=== PATIENT | female | born 1990 | race Caucasian/White ===

== ENCOUNTER 2018-04-02 04:21 | Inpatient (IN) | payer OTHER ==
[~2018-04-02] VITALS: Ht 170.2 cm; Wt 66.4 kg
[2018-04-02 06:40] VITALS: BP 126/73; PULSE 70; RESP 18; TEMP 98.3; O2SAT 100
[2018-04-02] MEDS ORDERED: ALUMINUM/MAGNESIUM/SIMETH 30 ML CUP PO PRN (10:45)
[2018-04-02] MEDS: QUEtiapine FUMARATE 100 MG TAB PO SCH ×2 (10:45→20:41)
[2018-04-02] MEDS ORDERED: MAGNESIUM HYDROXIDE SUSP 30 ML CUP PO PRN (10:45)
--- NOTE | 2018-04-02 11:02 | HHI.HP ---
Provisional Diagnosis Admission Date April 02, 2018 at 06:43 [place] I. Psychotic disorder brief F 23 Certification of Person's Competence To Provide Express and Informed Consent I have personally examined Garret Yeboah , a person being served at [facility] on, April 02, 2018 10:46. Express and informed consent means consent voluntarily given in writing, by a competent person, after sufficient explanation and disclosure of the subject matter involved to enable the person to make a knowing and willful decision without any element of force, fraud, deceit, duress, or other form of constraint or coercion. This person is 18 years of age or older, is not now known to be incompetent to consent to treatment with a guardian advocate, and does not have a health care surrogate or proxy currently making medical treatment decisions. I have found this person to be one of the following: [] Competent to provide express and informed consent, as defined above, for voluntary admission to this facility and is competent to provide express and informed consent for treatment. He/she has the consistent capacity to make well reasoned, willful, and knowing decisions concerning his or her medical or mental health treatment. The person fully and consistently understands the purpose of the admission for examination/placement and is fully capable of personally exercising all rights assured under [place]xxx] Incompetent to provide express and informed consent to voluntary admission , and this is incompetent to provide express and informed consent to treatment. The person must be transferred to involuntary status and a petition for a guardian advocate filed with the Circuit Court. [] Refusing to provide express and informed consent to voluntary admission but is competent to provide express and informed consent for treatment. The person must be discharged or transferred to involuntary status. Form shall be completed within 24 hours of a person's arrival at the receiving facility and filed in the clinical record of each person: 1. Admitted on a voluntary basis 2. Permitted to provide express and informed consent to his/her own treatment 3. Allowed to transfer from involuntary to voluntary status 4. Prior to permitting a person to consent to his or her own treatment after having been previously found incompetent to consent to treatment. History of Present Illness Capacity: Lacks Capacity HPI Patient is a 28-year-old white female was initially seen at [facility] with a Green act signed by kerry Garcia 04/02/1803 40 7 AM this document reviewed essentially stating patient with acute psychosis delusional thought process unsafe for release. Patient stated screen at that facility urine toxicology negative blood alcohol of negative. Patient transported here to the [facility]. Patient seen in her room on 2700 with nurse Mary. Patient is alert white female who appears somewhat older than stated age sitting is somewhat agitated manner in her room. She is diffusely confused as to date time and situation. She is showing severe thought blocking. Many times questioning a question with the "what?" There are infrequent responses that are somewhat appropriate. She acknowledges hearing spirits in her head that are disturbing. She feels there are people who may be inserting thoughts into her head. When asked about more specific past psychiatric history she refuses to answer with a marked confused look on her face. She did state with history of multiple drug abuse in the past including intravenous drug use including heroin. She is vague but acknowledged past detox and perhaps rehabs. She is quite confusing related to any mental health hospitalizations though she appears to be familiar with January. Patient states she has 3 children a teenager from 7-55-eoqz-old and about a 3-year-old. She is again confusing as to who is caring for these children. She first stating grandparents, then stating aunt and uncle than stating multiple family members.. In any event patient shows increased emotions becoming tearful when asked to give more specifics related to her family and her mental health history. There is vague if she has had any prior physical or sexual or emotional abuse. She is vague about any family history of mental illness of interest patient did state he had [facility] that she was hospitalized here 2-3 days ago and given Suboxone. Review of our EMR shows that this is patient's first visit with us. At this time patient meets criteria for involuntary psychiatric hospitalization of the [facility] older first opinion request second opinion. I feel she does not have capacity thus FOR healthcare surrogate and guardian advocate. Will attempt to reach family members to find a healthcare surrogate, and get further information about this lady's past mental health history and drug abuse history Review of Systems ROS Limitations: Altered Mental Status Constitutional: DENIES: Diaphoretic episodes, Fatigue, Fever, Weight gain, Weight loss, Chills, Dizziness, Change in appetite, Night Sweats Endocrine: DENIES: Abnorml menstrual pattern, Heat/cold intolerance, Polydipsia , Polyuria, Polyphagia Eyes: DENIES: Blurred vision, Diplopia, Eye inflammation, Eye pain, Vision loss , Photosensitivity, Double Vision Ears, nose, mouth, throat: DENIES: Tinnitus, Hearing loss, Vertigo, Nasal discharge, Oral lesions, Throat pain, Hoarseness, Ear Pain, Running Nose, Epistaxis, Sinus Pain, Toothache, Odynophagia Respiratory: DENIES: Apneas, Cough, Snoring, Wheezing, Hemoptysis, Sputum production, Shortness of breath Cardiovascular: DENIES: Chest pain, Palpitations, Syncope, Dyspnea on Exertion , PND, Lower Extremity Edema, Orthopnea, Claudication Gastrointestinal: DENIES: Abdominal pain, Black stools, Bloody stools, Constipation, Diarrhea, Nausea, Vomiting, Difficulty Swallowing, Anorexia Genitourinary: DENIES: Abnormal vaginal bleeding, Dysmenorrhea, Dyspareunia, Sexual dysfunction, Urinary frequency, Urinary incontinence, Urgency, Hematuria , Dysuria, Nocturia, Vaginal discharge Musculoskeletal: DENIES: Joint pain, Muscle aches, Stiffness, Joint Swelling, Back pain, Neck pain Integumentary: DENIES: Abnormal pigmentation, Pruritus, Rash, Nail changes, Breast masses, Breast skin changes, Nipple discharge Hematologic/lymphatic: DENIES: Bruising, Lymphadenopathy Immunologic/allergic: DENIES: Eczema, Urticaria Neurologic: DENIES: Abnormal gait, Headache, Localized weakness, Paresthesias, Seizures, Speech Problems, Tremor, Poor Balance Psychiatric: COMPLAINS OF: Anxiety, Hallucinations, Delusions Past Psych History Psychological trauma history Difficult to ascertain due to the patient's psychosis Violence risk - others (6 mos) Difficult to ascertain due to patient's psychosis Violence risk - self (6 mos) Difficult to ascertain due to patient's psychosis Substance Abuse History Drugs/Alcohol past 12 months Patient gives a past history of multiple drug abuse and intravenous drug abuse Past Family Social History Coded Allergies: No Known Allergies (Verified Allergy, Unknown, 04/02/18) Family Psych History Unknown at this time Social History Patient appears homeless, states she has 3 children who are living with various extended family members Patient's Strengths (min. 2) Patient verbal able [place] self-care Physical Exam Patient medically cleared [facility] at the present time patient sitting quietly in her room she is in no acute distress, no respiratory distress, no complaints of abdominal pain or chest pain. Patient moving all 4 extremities without difficulty Vital Signs Vital Signs Date Time Temp Pulse Resp B/P (MAP) Pulse Ox O2 Delivery O2 Flow Rate FiO2 04/02/18 06:40 98.3 70 18 126/73 (90) 100 Mental Status Examination Appearance: Appropriate Consciousness: Alert Orientation: Person Motor Activity: Normal gait Speech: Unremarkable Language: Adequate Fund of Knowledge: Adequate Attention and Concentration: Easily Distracted Memory: Impaired Mood: Sad, Irritable Affect: Other (Increased range and intensity) Thought Process & Associations: Loose associations, Other (Marked thought blocking) Thought Content: Bizarre thinking, Thought blocking Hallucination Type: Auditory Delusion Type: Paranoid Suicidal Ideation: No Suicidal Plan: No Suicidal Intention: No Homicidal Ideation: No Homicidal Plan: No Homicidal Intention: No Insight: Poor Judgment: Poor Assessment & Plan Problem List: (1) Brief psychotic disorder ICD Codes: F23 - Brief psychotic disorder Assessment & Plan Estimated LOS: 5-7 days patient meets clinical criteria will do first opinion request second opinion. Therefore she does not have capacity so as for health care surrogate and guardian advocate. We will start Seroquel at this lady once we get permission of healthcare surrogate. We will also attempt to get further information from patient's family related to her mental health history and substance abuse history Discharge Planning To be determined Request HC Surrog/Guard Advoc?: Yes Sandeep Moody MD April 02, 2018 11:02
--- NOTE | 2018-04-02 14:05 | PD.PSY.CON ---
Provisional Diagnosis Admission Date April 02, 2018 at 06:43 [place] I. Psychotic disorder brief F 23 History of Present Illness Service Psychiatry Consult Requested By Psychiatry Reason for Consult Second opinion Primary Care Physician Unknown HPI Patient is a 28-year-old white female was initially seen at [facility] with a Green act signed by kerry Garcia 04/02/1803 40 7 AM this document reviewed essentially stating patient with acute psychosis delusional thought process unsafe for release. Patient stated screen at that facility urine toxicology negative blood alcohol of negative. Patient transported here to the [facility]. Patient seen in her room on 2700 with nurse Mary. Patient is alert white female who appears somewhat older than stated age sitting is somewhat agitated manner in her room. She is diffusely confused as to date time and situation. She is showing severe thought blocking. Many times questioning a question with the "what?" There are infrequent responses that are somewhat appropriate. She acknowledges hearing spirits in her head that are disturbing. She feels there are people who may be inserting thoughts into her head. When asked about more specific past psychiatric history she refuses to answer with a marked confused look on her face. She did state with history of multiple drug abuse in the past including intravenous drug use including heroin. She is vague but acknowledged past detox and perhaps rehabs. She is quite confusing related to any mental health hospitalizations though she appears to be familiar with January. Patient states she has 3 children a teenager from 0-36-dtox-old and about a 3-year-old. She is again confusing as to who is caring for these children. She first stating grandparents, then stating aunt and uncle than stating multiple family members.. In any event patient shows increased emotions becoming tearful when asked to give more specifics related to her family and her mental health history. There is vague if she has had any prior physical or sexual or emotional abuse. She is vague about any family history of mental illness of interest patient did state he had [facility] that she was hospitalized here 2-3 days ago and given Suboxone. Review of our EMR shows that this is patient's first visit with us. At this time patient meets criteria for involuntary psychiatric hospitalization of the [employer] act older first opinion request second opinion. I feel she does not have capacity thus FOR healthcare surrogate and guardian advocate. Will attempt to reach family members to find a healthcare surrogate, and get further information about this lady's past mental health history and drug abuse history The patient is a 28 years old woman, she denies previous psychiatric history, domiciled in [place], single, unemployed, Green acted due to acute psychosis and delusional thought process. No significant medical history, who was consulted to me for second opinion. On psychiatric evaluation I find a patient that is quite oppositional, irritable, selectively mute. Patient reports that she feels horrible, "trying to get my shit together". Patient reports that she prefers to rest I remains silence. The patient denies previous psychiatric history. She says that her mother and her grandmother are schizophrenic. I asked her the reason to be so upset, the patient says "do not really know". She denies the use of illegal drugs or alcohol. Review of Systems Constitutional: DENIES: Diaphoretic episodes, Fatigue, Fever, Weight gain, Weight loss, Chills, Dizziness, Change in appetite, Night Sweats Endocrine: DENIES: Abnorml menstrual pattern, Heat/cold intolerance, Polydipsia , Polyuria, Polyphagia Eyes: DENIES: Blurred vision, Diplopia, Eye inflammation, Eye pain, Vision loss , Photosensitivity, Double Vision Ears, nose, mouth, throat: DENIES: Tinnitus, Hearing loss, Vertigo, Nasal discharge, Oral lesions, Throat pain, Hoarseness, Ear Pain, Running Nose, Epistaxis, Sinus Pain, Toothache, Odynophagia Respiratory: DENIES: Apneas, Cough, Snoring, Wheezing, Hemoptysis, Sputum production, Shortness of breath Cardiovascular: DENIES: Chest pain, Palpitations, Syncope, Dyspnea on Exertion , PND, Lower Extremity Edema, Orthopnea, Claudication Gastrointestinal: DENIES: Abdominal pain, Black stools, Bloody stools, Constipation, Diarrhea, Nausea, Vomiting, Difficulty Swallowing, Anorexia Genitourinary: DENIES: Abnormal vaginal bleeding, Dysmenorrhea, Dyspareunia, Sexual dysfunction, Urinary frequency, Urinary incontinence, Urgency, Hematuria , Dysuria, Nocturia, Vaginal discharge Musculoskeletal: DENIES: Joint pain, Muscle aches, Stiffness, Joint Swelling, Back pain, Neck pain Integumentary: DENIES: Abnormal pigmentation, Pruritus, Rash, Nail changes, Breast masses, Breast skin changes, Nipple discharge Hematologic/lymphatic: DENIES: Bruising, Lymphadenopathy Immunologic/allergic: DENIES: Eczema, Urticaria Neurologic: DENIES: Abnormal gait, Headache, Localized weakness, Paresthesias, Seizures, Speech Problems, Tremor, Poor Balance Psychiatric: DENIES: Anxiety, Confusion, Mood changes, Depression, Hallucinations, Agitation, Suicidal Ideation, Homicidal Ideation, Delusions Past Family Social History Coded Allergies: No Known Allergies (Verified Allergy, Unknown, 04/02/18) Current Medications Medications (Trade) Dose Ordered Sig/Loc Route Start Time Stop Time Status Last Admin (Benadryl) 50 mg HS PRN PO 04/02/18 21:00 (Tylenol) 650 mg Q4H PRN PO 04/02/18 10:45 (Milk Of Magnesia Liq) 30 ml DAILY PRN PO 04/02/18 10:45 (Mag-Al Plus Susp Liq) 30 ml Q6H PRN PO 04/02/18 10:45 (Atarax) 50 mg Q6H PRN PO 04/02/18 10:45 (SEROquel) 100 mg BID PO 04/02/18 10:45 04/02/18 10:45 Family Psych History She says that her mother and grandmother are a schizophrenic Social History Patient was born and raised in [place], she lives in [place], she is single, unemployed, Patient's Strengths (min. 2) Patient verbal able [place] self-care Physical Exam Vital Signs Vital Signs Date Time Temp Pulse Resp B/P (MAP) Pulse Ox O2 Delivery O2 Flow Rate FiO2 04/02/18 06:40 98.3 70 18 126/73 (90) 100 Mental Status Examination Appearance: Appropriate Consciousness: Alert Orientation: Person Motor Activity: Normal gait Speech: Unremarkable Language: Adequate Fund of Knowledge: Adequate Attention and Concentration: Easily Distracted Memory: Impaired Mood: Sad, Irritable Affect: Other (Increased range and intensity) Thought Process & Associations: Loose associations, Other (Marked thought blocking) Thought Content: Bizarre thinking, Thought blocking Hallucination Type: Auditory Delusion Type: Paranoid Suicidal Ideation: No Suicidal Plan: No Suicidal Intention: No Homicidal Ideation: No Homicidal Plan: No Homicidal Intention: No Insight: Poor Judgment: Poor Assessment & Plan Problem List: (1) Brief psychotic disorder ICD Codes: F23 - Brief psychotic disorder Assessment & Plan: I have seen and examined this patient, reviewed documentation, I agree and concur with Dr. Moody's assessment and plan Assessment & Plan Estimated LOS: days Request HC Surrog/Guard Advoc?: Yes Rivera Cramer MD April 02, 2018 14:05
[2018-04-02 17:15] VITALS: BP_SYST 109; BP_SYST 130; BP_DIAS 55; BP_DIAS 82; PULSE 87; RESP 17; RESP 18; TEMP 96.9; TEMP 98.2; O2SAT 100; O2SAT 96
[2018-04-02] MEDS: diphenhydrAMINE HCL 50 MG CAP PO PRN (20:41)
[2018-04-02] MEDS: hydrOXYzine HCL 50 MG TAB PO PRN (20:41)
[2018-04-03 06:12] VITALS: BP 108/59; PULSE 61; RESP 16; TEMP 97.3; O2SAT 98
[2018-04-03] MEDS: QUEtiapine FUMARATE 100 MG TAB PO SCH ×2 (09:38→21:13)
[2018-04-03] MEDS: hydrOXYzine HCL 50 MG TAB PO PRN ×2 (12:08→21:14)
--- NOTE | 2018-04-03 15:09 | HHI.PYPN ---
Subjective Remarks Patient seen today in day room with nurse Deisy, chart reviewed, patient complaint medications. Patient somewhat more alert today. She continues with marked thought blocking showing marked confused attitude after various questions including questions concerning her past psychiatric history and substance abuse history. After we finished our session and I told her she would not be being discharged today she walked back to her chair in the dayroom and setting crying and screaming. Review of Systems Except as stated in HPI: all other systems reviewed are Neg Mental Status Examination Appearance: Appropriate Consciousness: Alert Orientation: Person Motor Activity: Normal gait Speech: Unremarkable Language: Adequate Fund of Knowledge: Adequate Attention and Concentration: Easily Distracted Memory: Impaired Mood: Sad, Irritable Affect: Other (Increased range and intensity) Thought Process & Associations: Loose associations, Other (Marked thought blocking) Thought Content: Bizarre thinking, Thought blocking Hallucination Type: Auditory Delusion Type: Paranoid Suicidal Ideation: No Suicidal Plan: No Suicidal Intention: No Homicidal Ideation: No Homicidal Plan: No Homicidal Intention: No Insight: Poor Judgment: Poor Results Vitals/IOs Vital Signs Date Time Temp Pulse Resp B/P (MAP) Pulse Ox O2 Delivery O2 Flow Rate FiO2 04/03/18 06:12 97.3 61 16 108/59 (75) 98 Assessment & Plan Problem List: (1) Brief psychotic disorder ICD Codes: F23 - Brief psychotic disorder Assessment & Plan Estimated LOS: days patient continues quite psychotic and delusional. She is compliant with medications. For now continue treatment Justification for Cont. Inpt. At this time patient would decompensate a place to the lower level of care Discharge Planning To be determined Request HC Surrog/Guard Advoc?: Yes Sandeep Moody MD April 03, 2018 15:09
[2018-04-03 17:00] VITALS: BP 116/72; PULSE 82; RESP 17; TEMP 98.3; O2SAT 98
[2018-04-03] MEDS: diphenhydrAMINE HCL 50 MG CAP PO PRN (21:13)
[2018-04-04 06:19] VITALS: BP 107/66; PULSE 65; RESP 16; TEMP 98.6; O2SAT 100
--- NOTE | 2018-04-04 09:48 | HHI.PYPN ---
Subjective Remarks Chart reviewed and discussed with nursing staff. Patient was in her room very agitated. She would not let NAV Olivas join me. She is thought blocking accompanied by confusion. She has little insight to why she is in the hospital and unwilling to answer questions. After she ate breakfast in he room , she was sitting in the dayroom watching television. Mental Status Examination Appearance: Appropriate Consciousness: Alert Orientation: Person Motor Activity: Normal gait Speech: Unremarkable Language: Adequate Fund of Knowledge: Adequate Attention and Concentration: Easily Distracted Memory: Impaired Mood: Angry, Sad, Irritable Affect: Other (Increased range and intensity) Thought Process & Associations: Loose associations, Other (Marked thought blocking) Thought Content: Bizarre thinking, Thought blocking Hallucination Type: Auditory Delusion Type: Paranoid Suicidal Ideation: No Suicidal Plan: No Suicidal Intention: No Homicidal Ideation: No Homicidal Plan: No Homicidal Intention: No Insight: Poor Judgment: Poor Results Vitals/IOs Vital Signs Date Time Temp Pulse Resp B/P (MAP) Pulse Ox O2 Delivery O2 Flow Rate FiO2 04/04/18 06:19 98.6 65 16 107/66 (80) 100 Assessment & Plan Problem List: (1) Brief psychotic disorder ICD Codes: F23 - Brief psychotic disorder Assessment & Plan Patient is thought blocking and confused. Unwilling to answer questions. Paranoid and will not let the nurse in the room. Eating and sleeping well. Little insight to why she is in the hospital. Estimated LOS: days Justification for Cont. Inpt. Moving patient to a lower level of care may result in her decompensation. Request HC Surrog/Guard Advoc?: Yes Yesy Hernandez April 04, 2018 09:48
[2018-04-04] MEDS: QUEtiapine FUMARATE 100 MG TAB PO SCH ×2 (09:50→21:18)
[2018-04-04] MEDS: hydrOXYzine HCL 50 MG TAB PO PRN ×2 (12:10→18:25)
[2018-04-04 18:17] VITALS: BP 106/63; PULSE 71; RESP 17; TEMP 98.8; O2SAT 100
[2018-04-04] MEDS: ACETAMINOPHEN 325 MG TAB PO PRN (18:25)
[2018-04-04] MEDS: diphenhydrAMINE HCL 50 MG CAP PO PRN (21:18)
[2018-04-05 06:01] VITALS: BP 102/71; PULSE 63; RESP 17; TEMP 97.3; O2SAT 98
[2018-04-05] MEDS: QUEtiapine FUMARATE 100 MG TAB PO SCH (09:24)
[2018-04-05] MEDS: hydrOXYzine HCL 50 MG TAB PO PRN ×2 (11:42→18:32)
--- NOTE | 2018-04-05 14:59 | HHI.PYPN ---
Subjective Remarks Patient seen and examined with nurse in weekend coverage. Chart reviewed. Case discussed with nursing staff. On my examination today, patient is irritable. Affect is labile. She remains quite paranoid. Denies AVH. Sleep is reportedly poor. Denies side effects from medications. Complains of some mild chronic neck pain, requesting muscle relaxers. No other physical complaints. Review of Systems ROS Limitations: Psychotic, Poor Historian Except as stated in HPI: all other systems reviewed are Neg Mental Status Examination Appearance: Appropriate Consciousness: Alert Orientation: Person Motor Activity: Other (No motor abnormalities noted) Speech: Unremarkable Language: Adequate Fund of Knowledge: Adequate Attention and Concentration: Easily Distracted Memory: Impaired Mood: Irritable Affect: Irritable, Labile Thought Process & Associations: Tangential Thought Content: Bizarre thinking, Thought blocking Hallucination Type: Other (Appears internally stimulated) Delusion Type: Paranoid Suicidal Ideation: No Homicidal Ideation: No Insight: Poor Judgment: Poor Results Labs No laboratories ordered this admission Vitals/IOs Vital Signs Date Time Temp Pulse Resp B/P (MAP) Pulse Ox O2 Delivery O2 Flow Rate FiO2 04/05/18 06:01 97.3 63 17 102/71 (81) 98 Assessment & Plan Problem List: (1) Brief psychotic disorder ICD Codes: F23 - Brief psychotic disorder Assessment & Plan Titrate Seroquel to 100 mg in the morning and 200 mg at bedtime to target psychosis. Patient has analgesic available for neck pain. Continue to monitor on high acuity unit. Continue other medications and care as ordered. Justification for Cont. Inpt. Medication changes. Impairment in reality construction. High risk for decompensation in less restrictive environment. Discharge Planning As ordered by primary psychiatrist Request HC Surrog/Guard Advoc?: Yes Robert Brambila MD April 05, 2018 14:59
[2018-04-05 15:16] VITALS: BP 115/67; PULSE 86; RESP 18; TEMP 97.5; O2SAT 98
[2018-04-05] MEDS: ACETAMINOPHEN 325 MG TAB PO PRN (18:33)
[2018-04-05] MEDS: QUEtiapine FUMARATE 200 MG TAB PO SCH (20:32)
[2018-04-05] MEDS: diphenhydrAMINE HCL 50 MG CAP PO PRN (20:32)
[2018-04-06 06:16] VITALS: BP 94/53; PULSE 63; RESP 18; TEMP 98.2; O2SAT 97
[2018-04-06] MEDS: hydrOXYzine HCL 50 MG TAB PO PRN ×2 (08:48→18:11)
[2018-04-06] MEDS ORDERED: QUEtiapine FUMARATE 100 MG TAB PO SCH (09:00)
--- NOTE | 2018-04-06 10:21 | HHI.PYPN ---
Subjective Remarks Patient seen in day room with nurse, chart reviewed, patient complaint medications patient continues distractible thought blocking, though she denies voices. She continues somewhat vaguely confusing. Now she states she wants to get into the Suboxone program to help her opiate addictions. She stated she was not 3 rehabs in the past year or 2, but none are successful because her family did not support her. We need to get further verification from family continues to complain his past substance abuse history will increase her a.m. Seroquel to 150 mg Review of Systems Except as stated in HPI: all other systems reviewed are Neg Mental Status Examination Appearance: Appropriate Consciousness: Alert Orientation: Person Motor Activity: Other (No motor abnormalities noted) Speech: Unremarkable Language: Adequate Fund of Knowledge: Adequate Attention and Concentration: Easily Distracted Memory: Impaired Mood: Irritable Affect: Irritable, Labile Thought Process & Associations: Tangential Thought Content: Bizarre thinking, Thought blocking Hallucination Type: Other (Appears internally stimulated) Delusion Type: Paranoid Suicidal Ideation: No Homicidal Ideation: No Insight: Poor Judgment: Poor Results Vitals/IOs Vital Signs Date Time Temp Pulse Resp B/P (MAP) Pulse Ox O2 Delivery O2 Flow Rate FiO2 04/06/18 06:16 98.2 63 18 94/53 (67) 97 Assessment & Plan Problem List: (1) Brief psychotic disorder ICD Codes: F23 - Brief psychotic disorder Assessment & Plan Estimated LOS: days patient remained psychotic, paranoid, vigilant, also appears to be responding to internal stimuli. Compliant medications. For now continue treatment increasing a.m. Seroquel to 150 mg Justification for Cont. Inpt. At this time patient would decompensate the place to a lower level of care Discharge Planning To be determined Request HC Surrog/Guard Advoc?: Yes Sandeep Moody MD April 06, 2018 10:21
[2018-04-06] MEDS ORDERED: PILL SPLITTER OTHER PRN (10:45)
[2018-04-06] MEDS: ACETAMINOPHEN 325 MG TAB PO PRN (18:12)
[2018-04-06] MEDS: diphenhydrAMINE HCL 50 MG CAP PO PRN (20:55)
[2018-04-06] MEDS: QUEtiapine FUMARATE 200 MG TAB PO SCH (20:55)
[2018-04-07 06:14] VITALS: BP 115/52; PULSE 68; RESP 18; TEMP 98.1; O2SAT 98
[2018-04-07] MEDS: QUEtiapine FUMARATE 100 MG TAB PO SCH (09:25)
--- NOTE | 2018-04-07 12:54 | HHI.PYPN ---
Subjective Remarks Patient seen in her room with nurse Deysi, chart reviewed patient compliant medications, patient discussed with nurse patient calm and cooperative with me now denies suicidality homicidality voices or visions. She still is frustrated with relationship with her family. Most talking about wanting to go to a sober living facilities such as [facility]. We will have counselor work with her with that Review of Systems Except as stated in HPI: all other systems reviewed are Neg Mental Status Examination Appearance: Appropriate Consciousness: Alert Orientation: Person Motor Activity: Other (No motor abnormalities noted) Speech: Unremarkable Language: Adequate Fund of Knowledge: Adequate Attention and Concentration: Easily Distracted Memory: Impaired Mood: Irritable Affect: Irritable, Labile Thought Process & Associations: Tangential Thought Content: Bizarre thinking, Thought blocking Hallucination Type: Other (Appears internally stimulated) Delusion Type: Paranoid Suicidal Ideation: No Homicidal Ideation: No Insight: Poor Judgment: Poor Results Vitals/IOs Vital Signs Date Time Temp Pulse Resp B/P (MAP) Pulse Ox O2 Delivery O2 Flow Rate FiO2 04/07/18 06:14 98.1 68 18 115/52 (73) 98 Assessment & Plan Problem List: (1) Brief psychotic disorder ICD Codes: F23 - Brief psychotic disorder Assessment & Plan Estimated LOS: days patient continues with mild thought blocking and delayed responses and not as intense frequent as prior. For now continue treatment Justification for Cont. Inpt. At this time patient would decompensate a place to the lower level of care Discharge Planning To be determined perhaps some type of sober living facility Request HC Surrog/Guard Advoc?: Yes Sandeep Moody MD April 07, 2018 12:54
[2018-04-07 17:44] VITALS: BP 118/72; PULSE 78; RESP 18; TEMP 98.2; O2SAT 99
[2018-04-07] MEDS: QUEtiapine FUMARATE 200 MG TAB PO SCH (21:05)
[2018-04-08 06:28] VITALS: BP 110/56; PULSE 60; RESP 17; TEMP 97.8; O2SAT 98
[2018-04-08] MEDS: QUEtiapine FUMARATE 100 MG TAB PO SCH (08:29)
--- NOTE | 2018-04-08 15:45 | HHI.PYPN ---
Subjective Remarks Patient seen in the [facility] with nurse Renu, chart reviewed, patient complaint medications, patient discussed with nurse. Patient somewhat labile and anxious is quite concerned about placement issues. She continues to address her addictive behaviors does wish to find a sober living facility for women. Is [facility]. She does deny suicidality voices or visions at the present time but she does state her thoughts are somewhat racing at the present time and her speech is somewhat rapid and pressured. We will adjust the Seroquel to 100 mg a.m. 100 mg about 2 PM continue the at bedtime dose no change Review of Systems Except as stated in HPI: all other systems reviewed are Neg Mental Status Examination Appearance: Appropriate Consciousness: Alert Orientation: Person Motor Activity: Other (No motor abnormalities noted) Speech: Unremarkable Language: Adequate Fund of Knowledge: Adequate Attention and Concentration: Easily Distracted Memory: Impaired Mood: Irritable Affect: Irritable, Labile Thought Process & Associations: Tangential Thought Content: Bizarre thinking, Thought blocking Hallucination Type: Other (Appears internally stimulated) Delusion Type: Paranoid Suicidal Ideation: No Homicidal Ideation: No Insight: Poor Judgment: Poor Results Vitals/IOs Vital Signs Date Time Temp Pulse Resp B/P (MAP) Pulse Ox O2 Delivery O2 Flow Rate FiO2 04/08/18 06:28 97.8 60 17 110/56 (74) 98 Assessment & Plan Problem List: (1) Brief psychotic disorder ICD Codes: F23 - Brief psychotic disorder Assessment & Plan Estimated LOS: days patient continues somewhat psychotic paranoid vigilant anxious about placement to medication adjustment above Justification for Cont. Inpt. At this time patient would decompensate a place to a lower level of care Discharge Planning Continue to look at sober living facilities Request HC Surrog/Guard Advoc?: Yes Sandeep Moody MD April 08, 2018 15:45
[2018-04-08] MEDS: QUEtiapine FUMARATE 200 MG TAB PO SCH (21:43)
[2018-04-08] MEDS: hydrOXYzine HCL 50 MG TAB PO PRN (21:56)
[2018-04-09 06:07] VITALS: BP 110/58; PULSE 70; RESP 16; TEMP 97.2; O2SAT 98
[2018-04-09] MEDS: QUEtiapine FUMARATE 100 MG TAB PO SCH ×2 (08:27→14:20)
[2018-04-09] MEDS ORDERED: QUET1TAB8 PO (11:29)
--- NOTE | 2018-04-09 11:37 | HHI.DS ---
Psychiatry Discharge Summary Inpatient Psychiatric care?: Yes Advance Directive: No Mental Health AdvanceDirective: No Health Care Proxy: No Admission Admission Date April 02, 2018 at 06:43 Admission Diagnosis: (1) Brief psychotic disorder ICD Code: F23 - Brief psychotic disorder Brief History Patient is a 28-year-old white female was initially seen at [facility] with a Green act signed by a Mendez Garcia 04/02/1803 40 7 AM this document reviewed essentially stating patient with acute psychosis delusional thought process unsafe for release. Patient stated screen at that facility urine toxicology negative blood alcohol of negative. Patient transported here to the [facility]. Patient seen in her room on 2700 with nurse Mary. Patient is alert white female who appears somewhat older than stated age sitting is somewhat agitated manner in her room. She is diffusely confused as to date time and situation. She is showing severe thought blocking. Many times questioning a question with the "what?" There are infrequent responses that are somewhat appropriate. She acknowledges hearing spirits in her head that are disturbing. She feels there are people who may be inserting thoughts into her head. When asked about more specific past psychiatric history she refuses to answer with a marked confused look on her face. She did state with history of multiple drug abuse in the past including intravenous drug use including heroin. She is vague but acknowledged past detox and perhaps rehabs. She is quite confusing related to any mental health hospitalizations though she appears to be familiar with January. Patient states she has 3 children a teenager from 8-67-rgsc-old and about a 3-year-old. She is again confusing as to who is caring for these children. She first stating grandparents, then stating aunt and uncle than stating multiple family members.. In any event patient shows increased emotions becoming tearful when asked to give more specifics related to her family and her mental health history. There is vague if she has had any prior physical or sexual or emotional abuse. She is vague about any family history of mental illness of interest patient did state he had [facility] that she was hospitalized here 2-3 days ago and given Suboxone. Review of our EMR shows that this is patient's first visit with us. At this time patient meets criteria for involuntary psychiatric hospitalization of the [facility] older first opinion request second opinion. I feel she does not have capacity thus FOR healthcare surrogate and guardian advocate. Will attempt to reach family members to find a healthcare surrogate, and get further information about this lady's past mental health history and drug abuse history The patient is a 28 years old woman, she denies previous psychiatric history, domiciled in [facility], single, unemployed, [facility] due to acute psychosis and delusional thought process. No significant medical history, who was consulted to me for second opinion. On psychiatric evaluation I find a patient that is quite oppositional, irritable, selectively mute. Patient reports that she feels horrible, "trying to get my shit together". Patient reports that she prefers to rest I remains silence. The patient denies previous psychiatric history. She says that her mother and her grandmother are schizophrenic. I asked her the reason to be so upset, the patient says "do not really know". She denies the use of illegal drugs or alcohol. Tobacco Use In Past 30 Days: No Tobacco Past 30 Days Alcohol Use: Monthly or Less Hospital Course Patient's hospital course was uneventful her initial disorganization and confusion mood lability slowly improved. She remained compliant with medication. She did have a period of focusing on her desire to find a sober living facility for women. However that focus did waver somewhat. However she is consistently denied suicidality and homicidality voices or visions. At this time I feel she has reached maximum benefit of this hospitalization. She does wish to be discharged to herself. She wishes to be transported to the [facility]. We have made an appointment with her at at [facility] on that location. Patient states she will take responsibility for her own lodgings. She will be given a 2 week supply of her Seroquel Results Blood Pressure 110 / 58 Vital Signs Date Time Temp Pulse Resp B/P (MAP) Pulse Ox O2 Delivery O2 Flow Rate FiO2 04/09/18 06:07 97.2 70 16 110/58 (75) 98 Please see EMR for full lab results Summary of Procedures None done Pending results at discharge: No Medications # of Antipsychotic meds at D/C: 1 Approp Antipsych med options 1 - Minimum of three failed multiple trials of monotherapy. 2 - Documented plan to taper to monotherapy due to previous use of multiple meds OR cross-taper in progress at D/C. 3 - Documentation of augmentation of Clozapine. 4 - Justification other than those listed in allowable values 1-3, document here : Discharge Discharge Date: April 09, 2018 Discharge Diagnosis: (1) Brief psychotic disorder Diagnosis: Principal ICD Code: F23 - Brief psychotic disorder Pt Condition on Discharge: Stable Discharge Disposition: Discharge Home Discharge Instructions Diet Instructions: As Tolerated, No Restrictions Activities you can perform: Regular-No Restrictions Scheduled Appointment: [facility] Discharge Time > 30 minutes Mental Status Examination Appearance: Appropriate Consciousness: Alert Orientation: Person Motor Activity: Other (No motor abnormalities noted) Speech: Unremarkable Language: Adequate Fund of Knowledge: Adequate Attention and Concentration: Easily Distracted Memory: Impaired Mood: Irritable Affect: Irritable, Labile Thought Process & Associations: Tangential Thought Content: Bizarre thinking, Thought blocking Hallucination Type: Other (Appears internally stimulated) Delusion Type: Paranoid Suicidal Ideation: No Homicidal Ideation: No Insight: Poor Judgment: Poor Discharge/Advance Care Plan Health Problems: (1) Brief psychotic disorder Goals to promote your health * To prevent worsening of your condition and complications * To maintain your health at the optimal level Directions to meet your goals Take your medications as prescribed Follow your dietary instruction Follow activity as directed Keep your appointments as scheduled Take your immunizations and boosters as scheduled If your symptoms worsen call your PCP, if no PCP go to Urgent Care Center or Emergency Room For 02/06 questions related to your inpatient stay or results of tests pending at discharge, please contact Dr. Sandeep Moody at Smoking is Dangerous to Your Health. Avoid second hand smoking Sandeep Moody MD April 09, 2018 11:37
== END 2018-04-09 15:20 | disposition home or self-care (01) | DRG 885 ==
LOC: H270 06:43 → H260 04-06 18:30
PROVIDERS: ADMIT Psychiatry & Neurology Psychiatry; ATTEND Psychiatry & Neurology Psychiatry
DX: F23 Brief psychotic disorder (principal); G89.29 Other chronic pain; M54.2 Cervicalgia
CPT/HCPCS: Q0163